=== PATIENT | male | born 1970 | race Caucasian/White ===

== ENCOUNTER 2018-07-07 13:30 | Emergency (ER) | payer MEDICAID ==
[~2018-07-07] VITALS: Ht 175.3 cm; Wt 70.2 kg
[2018-07-07] MEDS ORDERED: SODIUM CHLORIDE 0.9% 1,000 ML IV ONE (15:19)
[2018-07-07] MEDS ORDERED: FAMOTIDINE 20MG/2ML VIAL IV STA (15:19)
[2018-07-07 16:12] LABS: BASOPHILS % 0.2 % (0.0-2.0); EOSINOPHILS % 1.2 % (0.0-5.0); HEMATOCRIT. 35.3 % (42.0-52.0); HEMOGLOBIN. 12.2 g/dL (14.0-18.0); LYMPHOCYTES % 18.4 % (20.0-50.0); MEAN CORPUSCULAR HEMOGLOBIN 32.4 pg (28.0-32.0); MEAN CORPUSCULAR VOLUME 93.8 fL (80.0-94.0); MONOCYTES % 9.5 % (2.0-8.0); NEUTROPHILS % 70.7 % (40.0-76.0); PLATELET 142 x1000/uL (130-400); RED BLOOD CELL COUNT 3.77 mill/uL (4.7-6.1); RED CELL DISTRIBUTION WIDTH 13.4 % (11.6-14.6)
[2018-07-07 16:19] LABS: CHLORIDE 106 mEq/L (98-107)
[2018-07-07 16:22] LABS: PARTIAL THROMBOPLASTIN TIME 26.6 sec (23.4-31.0)
[2018-07-07] MEDS ORDERED: LOPERAMIDE HCL 2MG CAPSULE PO ONE (16:45)
[2018-07-07 17:29] LABS: CLARITY URINE CLEAR (CLEAR); COLOR URINE YELLOW (YELLOW); KETONES URINE NEGATIVE (NEGATIVE); LEUKOCYTE ESTERASE URINE NEGATIVE (NEGATIVE); NITRITE URINE NEGATIVE (NEGATIVE); OCCULT BLOOD URINE NEGATIVE (NEGATIVE); PH URINE 5.5 (4.5-8.0); PROTEIN URINE NEGATIVE (NEGATIVE); SPECIFIC GRAVITY URINE 1.015 (1.005-1.030); UROBILINOGEN URINE 0.2 E.U./dL (0.2-1.0)
[2018-07-07 18:02] VITALS: BP 103/63
== END 2018-07-07 18:04 | disposition home or self-care (01) ==
LOC: ER 13:30
DX: R19.7 Diarrhea, unspecified (principal); F17.200 Nicotine dependence, unspecified, uncomplicated; Z98.890 Other specified postprocedural states
CPT/HCPCS: 36415; 74176; 80053; 81003; 83690; 83735; 85025; 85610; 85730; 96361; 96374; 99285; J3490; J7030; Z7610